=== PATIENT | male | born 2000 | race Caucasian/White ===

== ENCOUNTER 2019-07-31 18:12 | Emergency (ER) | payer OTHER ==
[~2019-07-31] VITALS: Ht 172.7 cm; Wt 93.2 kg
[2019-07-31 18:20] VITALS: Ht 172.7 cm; Wt 93.2 kg
[2019-07-31] MEDS ORDERED: STERAPRED 5MG 65 M1 PO (19:41)
[2019-07-31 19:46] VITALS: BP 133/72
== END 2019-07-31 19:47 | disposition home or self-care (01) ==
LOC: D.ER 18:12
DX: R07.89 Other chest pain (principal); R05 Cough; R68.89 Other general symptoms and signs